=== PATIENT | female | born 1975 | race Caucasian/White ===

== ENCOUNTER → 2016-06-24 | Outpatient (CLI) | payer OTHER | LOC: FIMAGING 16:03 | PROVIDERS: ATTEND Physician Assistant | DX: M25.762 Osteophyte, left knee (principal); M25.761 Osteophyte, right knee ==

== ENCOUNTER → 2017-01-29 | Outpatient (CLI) | payer OTHER | LOC: FIMAGING 15:58 | PROVIDERS: ATTEND Family Medicine | DX: D25.1 Intramural leiomyoma of uterus (principal) ==

== ENCOUNTER → 2017-04-13 | Outpatient (CLI) | payer OTHER | LOC: FIMAGING 08:04 | PROVIDERS: ATTEND Surgery | DX: Z03.89 Encounter for observation for other suspected diseases and conditions ruled out (principal) ==

== ENCOUNTER 2017-05-13 05:41 | Day surgery (SDC) | payer OTHER ==
[2017-05-13] MEDS ORDERED: LR 1,000 ML IV ONE (06:22)
[2017-05-13] MEDS ORDERED: LIDOCAINE 1% 2 ML INJ ID PRN (06:22)
[2017-05-13 06:38] VITALS: PULSE 81
--- NOTE | 2017-05-13 06:44 | PDANEPAE ---
ANE History of Present Illness 41 year old female for hysteroscopy/polypectomy and hernia repair. ANE Past Medical History - Cardiovascular History Hx Hypertension: No Hx Arrhythmias: No Hx Chest Pain: No Hx Coronary Artery / Peripheral Vascular Disease: No Hx CHF / Valvular Disease: No Hx Palpitations: No - Pulmonary History Hx COPD: No Hx Asthma/Reactive Airway Disease: No Hx Recent Upper Respiratory Infection: Yes Hx Oxygen in Use at Home: No Hx Sleep Apnea: No Sleep Apnea Screening Result - Last Documented: Negative - Neurologic History Hx Cerebrovascular Accident: No Hx Seizures: No Hx Dementia: No - Endocrine History Hx Diabetes: No Hypothyroid: No Hyperthyroid: No Obesity: yes, severe - Renal History Hx Renal Disorders: No - Liver History Hx Hepatic Disorders: No - Neurological & Psychiatric Hx Hx Neurological and Psychiatric Disorders: No Neurological / Psychiatric History Comment: fluoxetine for PMS - Cancer History Hx Cancer: No - Congenital Disorder History Hx Congenital Disorders: No - GI History Hx Gastrointestinal Disorders: Yes Gastrointestinal History Comment: GERD - Other Health History Other Health History: Abnormal uterine bleeding-fibroid & polyp. Hernia: 9cm L side of navel. on Humira and steroids -chronic iritis. Pain in knees - unknown autoimmune. - Chronic Pain History Chronic Pain: Yes (UMBILICAL AREA) - Surgical History Prior Surgeries: IVF ANE Review of Systems Review of systems is: negative Review of Systems: - Exercise capacity Exercise capacity: >=4 METS METS (RN): 4 METS ANE Patient History - Allergies Allergies/Adverse Reactions: codeine Allergy (Verified 05/13/17 06:26) hydrocodone bitartrate [From Vicodin] Allergy (Verified 05/13/17 06:26) Vomiting ondansetron [From Zofran (as hydrochloride)] Allergy (Verified 05/13/17 06:26) Other-Enter Comments Sulfa (Sulfonamide Antibiotics) Allergy (Verified 05/13/17 06:26) Hives - Home Medications Home medications: home medication list seen and reviewed Home Medications: Doxylamine Succinate 04/13/17 [Last Taken 05/12/17] Durezol RTEYE 04/13/17 [Last Taken 05/11/17] FLUoxetine 04/13/17 [Last Taken 05/06/17] Humira 04/13/17 [Last Taken 05/05/17] Omeprazole 04/13/17 [Last Taken 05/06/17] Prednisolone LEFTEYE 04/13/17 [Last Taken 05/13/17 04:30] - NPO status NPO Status: no food or drink >8 hours NPO Since - Liquids (Date): 05/12/17 NPO Since - Liquids (Time): 21:00 NPO Since - Solids (Date): 05/12/17 NPO Since - Solids (Time): 19:00 - Anes Hx Anes Hx: post operative nausea Hx Anesthesia Complications (with details): Had a migraine headache for 3 days after receiving zofran - Smoking Hx Smoking Status: Never smoked Marijuana use: No - Alcohol Use Alcohol Use: Rarely - Family Anes Hx Family Anes Hx: neg - N/A Family Hx Anesthesia Complications: FAMILY HX OF VIOLENT NAUSEA ANE Labs/Vital Signs - Vital Signs Vital Signs: reviewed preoperatively; see RN documention for details Blood Pressure: 125/73 Heart Rate: 81 Respiratory Rate: 16 O2 Sat (%): 92 Height: 154.94 cm Weight: 124.738 kg ANE Physical Exam - Airway Neck exam: FROM Mallampati Score: Class 3 Mouth exam: normal dental/mouth exam Mouth image: 1 - Bonding on medial/inferior cutting surfaces - Pulmonary Pulmonary: no respiratory distress - Cardiovascular Cardiovascular: regular rate and rhythym - ASA Status ASA Status: II ANE Anesthesia Plan Anesthesia Plan: general endotracheal anesthesia Total IV Anesthesia: Yes
[2017-05-13] MEDS ORDERED: BUPIVACAINE 0.5% 30 ML SDV ONE (06:56)
[2017-05-13] MEDS ORDERED: LIDO/EPI 1% **for epidural** 30 ML SDV ONE (06:57)
[2017-05-13] MEDS ORDERED: LIDOCAINE 1% 300 MG/30 ML SDV ONE (06:58)
[2017-05-13] MEDS ORDERED: MIDAZOLAM 2 MG/2 ML VIAL IVP ONE (07:08)
[2017-05-13] MEDS ORDERED: MIDAZOLAM 2 MG/2 ML VIAL ONE (07:11)
[2017-05-13] MEDS ORDERED: SCOPOLAMINE HYDROBROMIDE 1 MG/3 DAYS PATCH TD SCH (07:15)
[2017-05-13] MEDS ORDERED: ceFAZolin 3 GM in D5W 100 ML IV ONE (07:15)
--- NOTE | 2017-05-13 07:15 | PDHPUP ---
History & Physical Update H&P update statement: This history and physical update is based on an assessment of the patient which was completed after admission or registration (within 24 hours), but prior to the surgery/procedure. H&P update: H&P reviewed & patient examined (CT with umbilical hernia. Risks and benefits discussed)
[2017-05-13] MEDS ORDERED: PROPOFOL/EMULSION 500 MG/50 ML BOTTLE IV ONE ×4 (07:21→08:43)
[2017-05-13] MEDS ORDERED: fentaNYL 100 MCG/2 ML INJ ONE ×2 (07:21→09:36)
[2017-05-13] MEDS ORDERED: DEXAMETHASONE 4 MG/ML VIAL ONE (07:27)
[2017-05-13] MEDS ORDERED: ROCURONIUM 50 MG/5 ML VIAL ONE ×2 (07:27→07:58)
[2017-05-13] MEDS ORDERED: LIDOCAINE 2% 5 ML SDV ONE (07:27)
--- NOTE | 2017-05-13 07:33 | PDHPUP ---
History & Physical Update H&P update statement: This history and physical update is based on an assessment of the patient which was completed after admission or registration (within 24 hours), but prior to the surgery/procedure.
[2017-05-13] MEDS ORDERED: OXYCODONE/APAP 5/325 TAB PO PRN (08:01)
[2017-05-13] MEDS ORDERED: PHENYLEPHRINE HCL 100 MCG/ML SYR IVP PRN (08:01)
[2017-05-13] MEDS ORDERED: NALOXONE HCL 0.4 MG/ML INJ IVP PRN (08:01)
[2017-05-13] MEDS ORDERED: ACETAMINOPHEN 500 MG TAB PO PRN (08:01)
[2017-05-13] MEDS ORDERED: PROMETHAZINE HCL 25 MG/ML INJ IVP PRN (08:01)
[2017-05-13] MEDS ORDERED: LR 500 ML IV PRN (08:01)
[2017-05-13] MEDS ORDERED: KETOROLAC 30 MG/1 ML SDV ONE (08:40)
[2017-05-13] MEDS ORDERED: SUGAMMADEX SODIUM 200 MG/2 ML VIAL IVP ONE ×2 (08:40)
[2017-05-13] MEDS: fentaNYL 100 MCG/2 ML INJ IVP PRN ×3 (09:40→10:21)
[2017-05-13 09:49] VITALS: TEMP 97.9
--- NOTE | 2017-05-13 09:52 | POSTOPPROG ---
Post Op Note Date of Operation: 05/13/17 Surgeon: Carmela Jacobs Anesthesiologist: TEA CHO Anesthesia: LMA Pre-op Diagnosis: POLYPS , dub Post-op Diagnosis: same Indication: uterine bleeding Procedure: H/S polypectomy, Novasure ablation Findings: uterine polyps Inf/Abcess present in the surg proc area at time of surgery?: No EBL: Minimal
--- NOTE | 2017-05-13 10:20 | POSTOPPROG ---
Post Op Note Date of Operation: 05/13/17 Surgeon: Vidhya Recinos Anesthesiologist: deep Anesthesia: GET(General Endotracheal) Pre-op Diagnosis: umbilical hernia Post-op Diagnosis: same Indication: 41 yo with umbilical hernia Procedure: umbilical hernia repair with retrorectus mesh placement Findings: adipose tissue Inf/Abcess present in the surg proc area at time of surgery?: No EBL: Minimal
[2017-05-13] MEDS ORDERED: ACETAMINOPHEN 500 MG TAB ONE (10:32)
--- NOTE | 2017-05-13 11:27 | GOP ---
[f rep st] OPERATIVE REPORT DATE OF OPERATION: 05/13/2017 SURGEON: Vidhya Recinos MD ANESTHESIA: General. ANESTHESIOLOGIST: Andrew Michel MD PREOPERATIVE DIAGNOSIS: Umbilical hernia. POSTOPERATIVE DIAGNOSIS: Umbilical hernia. PROCEDURE PERFORMED: Umbilical hernia repair with retrorectus mesh placement. FINDINGS: SPECIMENS: None. ESTIMATED BLOOD LOSS: 5 cc. INDICATIONS: The patient is a 41-year-old woman who had noticed a bulge by her umbilicus and pain on her left side. Ultrasound did not demonstrate any additional hernias. CT scan showed a small herni a in the area of her umbilicus, to the left of it. DESCRIPTION OF PROCEDURE: The patient was in the operating room and general anesthesia was in place. Dr. Jacobs completed her portion of the procedure. She was then placed in the supine position, and her abdomen was prepped and draped in the usual sterile fashion. I infiltrated the area with 10 mL of 0.5% Marcaine. I made an incision beneath her umbilicus. I dissected down to the subcutaneous ti ssues. I removed her umbilical stalk from the fascia. I explored this area. There were weakened ti ssue and areas of fat protruding. I then was able to identify the anterior rectus sheath. I opened this. I swept her rectus muscles laterally, and I felt the posterior rectus sheath. I was able to p lace a piece of laparoscopic self-fixating ProGrip mesh in a retrorectus position. I then reclosed t he anterior rectus sheath with 0 Surgilon. I closed Camper's and Ceci's with 2-0 Vicryl. I closed the skin with 3-0 Vicryl followed by 4-0 Monocryl. Mastisol, Steri-Strips, and a sterile dressing w ere applied. She was awakened in the operating room, extubated, and transferred to PACU in stable co ndition. /[id number]/MODL
[2017-05-13 11:52] VITALS: BP 127/85; RESP 16; O2SAT 94
--- NOTE | 2017-05-13 13:51 | POSTANESTH ---
Post Anesthetic Evaluation Cardiovascular Status: Normal, Stable, Similar to Pre-Op Cond Respiratory Status: Normal, Stable, Similar to Pre-op Cond. Level of Consciousness/Mental Status: Can Participate in Eval, Alert and Oriented Pain Control: Adequate, Prn Tx Ordered Nausea/Vomiting Control: Adequate, Prn Tx Ordered Complications Possibly Related to Anesthesia: None Noted
--- NOTE | 2017-05-14 00:54 | GOP ---
[f rep st] OPERATIVE REPORT DATE OF OPERATION: 05/13/2017 SURGEON: Carmela Jacobs MD ANESTHESIA: General with LMA. ANESTHESIOLOGIST: Andrew Michel MD PREOPERATIVE DIAGNOSIS: 1. Dysfunctional uterine bleeding. 2. Endometrial polyps and possibly fibroid. POSTOPERATIVE DIAGNOSIS: 1. Dysfunctional uterine bleeding. 2. Endometrial polyps and possibly fibroid. PROCEDURE PERFORMED: Hysteroscopic polypectomy and likely myomectomy, NovaSure endometrial ablation. FINDINGS: Large polyp-like tissue in the endometrium, normal tubal ostia, possibly a fibroid near th e fundus of the uterus pushing in front of the endometrium. ESTIMATED BLOOD LOSS: Minimal. DESCRIPTION OF PROCEDURE: With informed consent signed, patient taken to the operating room and [facility] under general anesthesia. Placed in a low dorsal lithotomy position, prepped and draped in the ua sterile fashion. Tenaculum placed on the anterior lip of the cervix and cervix dilated up to 6 m m. Hysteroscope placed using normal saline as a filling medium. Findings as noted above. The [employer] TRUCLEAR morcellation device placed into the hysteroscope and resection of the tissue don e without complication. This was removed and uterus, which was previously sounded, had a NovaSure en dometrial ablation device placed into the uterine cavity. The length was measured at 6.5, width was 3.0. Integrity test passed and burn time was a minute and 5 seconds. NovaSure device removed and pa tient placed in the supine position. At this point, Dr. Vidhya Recinos came in to do an open umbilical hernia repair. The net fluid deficit was about 400 cc. INDICATIONS FOR PROCEDURE: Patient is a 41-year-old, history of infertility, who presents for very h eavy bleeding. Ultrasound sonohysterogram showed a 2 cm polyp and possibly a fibroid impinging on th e endometrium. Patient desires definitive therapy. COMPLICATIONS: None. /[id number]/MODL
[2017-05-16] MEDS ORDERED: PATCH REMOVAL 1 EA PATCH TD SCH (07:09)
== END 2017-05-13 11:50 | disposition home or self-care (01) ==
LOC: FSGY 05:41
PROVIDERS: ATTEND Obstetrics & Gynecology Gynecology
PROC: 0UDB8ZX Extraction of Endometrium, Via Natural or Artificial Opening Endoscopic, Diagnostic (ICD-10-PCS; principal; 2017-05-13 07:15)
PROC: 0WQF0ZZ Repair Abdominal Wall, Open Approach (ICD-10-PCS; 2017-05-13 07:15)
DX: N84.0 Polyp of corpus uteri (principal); K42.9 Umbilical hernia without obstruction or gangrene; N93.8 Other specified abnormal uterine and vaginal bleeding
CPT/HCPCS: 49585; 58563; C1782; C1727; C1781; J0171; J0690; J1100; J1885; J2250; J2704; J3010

== ENCOUNTER → 2018-01-19 | Outpatient (CLI) | payer OTHER | LOC: BMCIMAGING 16:27 | PROVIDERS: ATTEND Internal Medicine Rheumatology | DX: M23.92 Unspecified internal derangement of left knee (principal) ==

== ENCOUNTER 2018-02-25 05:44 | Day surgery (SDC) | payer OTHER ==
[2018-02-25] MEDS ORDERED: ceFAZolin 2 GM/DEXTROSE 100 ML IV ONE (05:50)
[2018-02-25] MEDS ORDERED: LR 1,000 ML IV ONE (05:52)
[2018-02-25] MEDS ORDERED: LIDOCAINE 1% 2 ML INJ ID PRN (05:52)
--- NOTE | 2018-02-25 06:58 | PDHPUP ---
History & Physical Update H&P update statement: This history and physical update is based on an assessment of the patient which was completed after admission or registration (within 24 hours), but prior to the surgery/procedure. H&P update: H&P reviewed & patient examined, no change in patient's condition since H&P completed
[2018-02-25] MEDS ORDERED: MIDAZOLAM 2 MG/2 ML VIAL IVP ONE (07:00)
[2018-02-25] MEDS ORDERED: NALOXONE HCL 0.4 MG/ML INJ IVP PRN ×2 (07:00→09:43)
[2018-02-25] MEDS ORDERED: SCOPOLAMINE HYDROBROMIDE 1 MG/3 DAYS PATCH TD SCH (07:00)
--- NOTE | 2018-02-25 07:12 | PDANEPAE ---
ANE History of Present Illness Laparoscopic incisional hernia repair. ANE Past Medical History - Cardiovascular History Hx Hypertension: No Hx Arrhythmias: No Hx Chest Pain: No Hx Coronary Artery / Peripheral Vascular Disease: No Hx CHF / Valvular Disease: No Hx Palpitations: No - Pulmonary History Hx COPD: No Hx Asthma/Reactive Airway Disease: No Hx Recent Upper Respiratory Infection: No Hx Oxygen in Use at Home: No Hx Sleep Apnea: No Sleep Apnea Screening Result - Last Documented: Negative - Neurologic History Hx Cerebrovascular Accident: No Hx Seizures: No Hx Dementia: No - Endocrine History Hx Diabetes: No Obesity: severe - Renal History Hx Renal Disorders: No - Liver History Hx Hepatic Disorders: No - Neurological & Psychiatric Hx Hx Neurological and Psychiatric Disorders: No Neurological / Psychiatric History Comment: fluoxetine for PMS - Cancer History Hx Cancer: No - Congenital Disorder History Hx Congenital Disorders: No - GI History GERD: mild Hx Gastrointestinal Disorders: Yes Gastrointestinal History Comment: GERD - Other Health History Other Health History: arthritis. wears glasses/ contacts - Chronic Pain History Chronic Pain: Yes (arthritic) - Surgical History Prior Surgeries: 05/13/17 hysteroscopy, polypectomy with Jacobs- open umbilical hernia repair with Jorje (no issues with anesthesia). 05/24/15 open umbilical hernia repair with Jorje (had zofran with this procedure). IVF. surgery on ear drum. ear tubes ANE Review of Systems Review of Systems: - Exercise capacity METS (RN): 4 METS - Systems Respiratory: Reports: other (consider RUI) ANE Patient History - Allergies Allergies/Adverse Reactions: codeine Allergy (Verified 02/21/18 10:31) extreme vomitting hydrocodone bitartrate [From Vicodin] Allergy (Verified 02/21/18 10:31) extreme vomitting ondansetron [From Zofran (as hydrochloride)] Allergy (Verified 02/21/18 10:25) 3 day migraine Opioids - Morphine Analogues Allergy (Verified 02/21/18 10:31) extreme vomitting Sulfa (Sulfonamide Antibiotics) Allergy (Verified 02/21/18 10:25) Hives - Home Medications Home medications: home medication list seen and reviewed Home Medications: Durezol PRN 04/13/17 [Last Taken 05/11/17] FLUoxetine 04/13/17 [Last Taken 05/06/17] Humira 04/13/17 [Last Taken 05/05/17] Omeprazole 04/13/17 [Last Taken 05/06/17] Prednisolone BID 04/13/17 [Last Taken 05/13/17 04:30] Herbals/Supplements -Info Only 02/21/18 [Last Taken 02/21/18] Ibuprofen 02/21/18 [Last Taken 02/21/18] Methotrexate 02/21/18 [Last Taken Unknown] - NPO status NPO Since - Liquids (Date): 02/25/18 NPO Since - Liquids (Time): 02:00 NPO Since - Solids (Date): 02/24/18 NPO Since - Solids (Time): 19:30 - Smoking Hx Smoking Status: Never smoked - Family Anes Hx Family Hx Anesthesia Complications: FAMILY HX OF VIOLENT NAUSEA ANE Labs/Vital Signs - Vital Signs Blood Pressure: 120/75 Heart Rate: 79 Respiratory Rate: 22 O2 Sat (%): 93 Height: 154.94 cm Weight: 126.552 kg ANE Physical Exam - Airway Neck exam: FROM Mallampati Score: Class 2 - Pulmonary Pulmonary: no respiratory distress, no rales or rhonchi - Cardiovascular Cardiovascular: regular rate and rhythym, no murmur, rub, or gallop - ASA Status ASA Status: III ANE Anesthesia Plan Anesthesia Plan: general endotracheal anesthesia Specialized Airway: video laryngoscope Total IV Anesthesia: Yes
[2018-02-25] MEDS ORDERED: fentaNYL 100 MCG/2 ML INJ ONE ×2 (07:18→07:53)
[2018-02-25] MEDS ORDERED: PROPOFOL/EMULSION 500 MG/50 ML BOTTLE IV ONE ×4 (07:18→09:11)
[2018-02-25] MEDS ORDERED: ceFAZolin 1 GM VIAL ONE (07:20)
[2018-02-25] MEDS ORDERED: BUPIVACAINE 0.5% 30 ML SDV ONE (07:24)
[2018-02-25] MEDS ORDERED: GLYCOPYRROLATE 0.2 MG/1 ML VIAL ONE (07:37)
[2018-02-25] MEDS ORDERED: LIDOCAINE 2% 2 ML INJ ONE ×2 (07:49)
[2018-02-25] MEDS ORDERED: KETOROLAC 30 MG/1 ML SDV ONE (07:49)
[2018-02-25] MEDS ORDERED: DEXAMETHASONE 4 MG/ML VIAL ONE ×2 (07:49)
[2018-02-25] MEDS ORDERED: MIDAZOLAM 2 MG/2 ML VIAL ONE (08:00)
[2018-02-25] MEDS ORDERED: ROCURONIUM 50 MG/5 ML VIAL ONE ×3 (09:06)
[2018-02-25] MEDS ORDERED: SUGAMMADEX SODIUM 200 MG/2 ML VIAL IVP ONE (09:07)
[2018-02-25] MEDS ORDERED: PROMETHAZINE HCL 25 MG/ML INJ IVP PRN (09:43)
[2018-02-25] MEDS ORDERED: LABETALOL HCL 5 MG/ML 20 ML MDV IVP PRN (09:43)
[2018-02-25] MEDS ORDERED: DIAZEPAM 5 MG/ML 1 ML SYR IVP PRN (09:43)
[2018-02-25] MEDS ORDERED: ACETAMINOPHEN 500 MG TAB PO PRN (09:43)
[2018-02-25] MEDS ORDERED: LR 500 ML IV PRN (09:43)
[2018-02-25] MEDS ORDERED: ALBUTEROL 3 ML DEYVIAL IH PRN (09:43)
[2018-02-25] MEDS ORDERED: METOCLOPRAMIDE 10 MG/2 ML VIAL IVP PRN (09:43)
--- NOTE | 2018-02-25 09:43 | POSTOPPROG ---
Post Op Note Date of Operation: 02/25/18 Surgeon: Vidhya Recinos Dispatcher Street Department: [facility] Anesthesiologist: oscar Anesthesia: GET(General Endotracheal) Pre-op Diagnosis: incarcerated ventral hernia Post-op Diagnosis: incarcerated ventral hernia Indication: 42 yo with incarcerated recurrent ventral hernia Procedure: davinci ventral hernia repair with mesh Findings: 3x2 cm defect Inf/Abcess present in the surg proc area at time of surgery?: No
[2018-02-25] MEDS ORDERED: LABETALOL HCL 5 MG/ML 20 ML MDV ONE (09:47)
[2018-02-25 10:45] VITALS: BP 112/82
--- NOTE | 2018-02-25 13:07 | GOP ---
DATE OF OPERATION: 02/25/2018 SURGEON: Vidhya Recinos MD SECURITY ADVISOR: BECCA Kan. ANESTHESIA: General. ANESTHESIOLOGIST: Maria Del Carmen Palma MD. PREOPERATIVE DIAGNOSIS: Incarcerated ventral hernia. POSTOPERATIVE DIAGNOSIS: Incarcerated ventral hernia. PROCEDURE PERFORMED: Da Brigido ventral hernia repair with mesh. FINDINGS: SPECIMENS: None. ESTIMATED BLOOD LOSS: 10 cc. INDICATIONS: The patient is a 42-year-old woman who has a recurrent ventral hernia DESCRIPTION OF PROCEDURE: The patient was brought into the operating room and placed supine on the t able, and general anesthesia was administered. Her abdomen was prepped and draped in the usual steri le fashion. Infiltrated all sites prior to making incisions. Selected a piece on the midclavicular line on her right abdomen lateral to the umbilicus. I elevated it. I inserted the long Veress needl e. It passed the hanging drop test. Her abdomen insufflated easily to a pressure of 15 mmHg. I pat karlos a trocar with a camera at this site. There were no injuries from Veress needle placement. Under direct vision, I placed the 8 mm robotic trocars more laterally and then I exchanged under direct vi ulises for a da Brigido trocar at the camera site. The robot was docked. Scissors and fenestrated bipol ar were introduced. I moved to the console. I reduced the incarcerated omentum from the hernia. I created a preperitoneal space. Next, I closed the preperitoneal space with 0 Vicryl 180 V-Loc. I th en placed a piece of ProGrip mesh for reinforcement and then I closed the peritoneum with 0 V-Loc 180 . Trocars removed under direct vision. All needles removed. Dermabond applied. She was awakened i n the operating room, extubated, and transferred to PACU in stable condition. /[id number]/MODL
--- NOTE | 2018-02-25 14:04 | POSTANESTH ---
Post Anesthetic Evaluation Cardiovascular Status: Normal, Stable Respiratory Status: Normal, Stable Level of Consciousness/Mental Status: Can Participate in Eval Pain Control: Adequate, Prn Tx Ordered Nausea/Vomiting Control: Adequate, Prn Tx Ordered Complications Possibly Related to Anesthesia: None Noted
[2018-02-28] MEDS ORDERED: PATCH REMOVAL 1 EA PATCH TD SCH (07:01)
== END 2018-02-25 11:25 | disposition home or self-care (01) ==
LOC: FSGY 05:44
PROVIDERS: ATTEND Surgery
PROC: 8E0W4CZ Robotic Assisted Procedure of Trunk Region, Percutaneous Endoscopic Approach (ICD-10-PCS; 2018-02-25)
PROC: 0WUF4JZ Supplement Abdominal Wall with Synthetic Substitute, Percutaneous Endoscopic Approach (ICD-10-PCS; principal; 2018-02-25 07:15)
DX: K43.0 Incisional hernia with obstruction, without gangrene (principal); K21.9 Gastro-esophageal reflux disease without esophagitis; E66.01 Morbid (severe) obesity due to excess calories; Z68.43 Body mass index [BMI] 50.0-59.9, adult
CPT/HCPCS: C1781; J0690; J1100; J1885; J2250; J2704; J3010